=== PATIENT | female | born 1965 | race American Indian/Alaskan Native ===

== ENCOUNTER 2018-04-14 13:43 | Day surgery (SDC) | payer BC ==
[2018-04-14] MEDS ORDERED: VANCOMYCIN/NS 1 GM/250 ML 1 GM/250 ML BAG IV NR (14:12)
[2018-04-14] MEDS ORDERED: LACTATED RINGERS 1,000 ML IV SCH (14:16)
--- NOTE | 2018-04-14 14:21 | Anesthesia Consultation ---
Anesthesia Consult and Med Hx Date of service: 04/14/18 - Airway Anesthetic Teeth Evaluation: Dentures, Partials (lower partial) ROM Head & Neck: Adequate Mental/Hyoid Distance: Adequate Mallampati Class: Class I Intubation Access Assessment: Good - Pulmonary Exam CTA: Yes - Cardiac Exam Cardiac Exam: RRR - Pre-Operative Health Status ASA Pre-Surgery Classification: ASA1 Proposed Anesthetic Plan: General - Pre-Anesthesia Comment Pre-Anesthesia Comments: Patient tolerates >6 METs. No chest pain or SOB. No recent cold or flu. No N/V. No h/o motion sickness. Last surgery: patient said to have choked and coughed afterward. Unsure the reason. - Pulmonary Hx Smoking: No Hx Sleep Apnea: No (KASSIDY PRE SCREEN LOW RISK.) - Cardiovascular System Hx Hypertension: No - Central Nervous System Hx Seizures: No CVA: No - Gastrointestinal Hx Ulcer: No Hx Gastroesophageal Reflux Disease: No - Endocrine Hx Renal Disease: No - Other Systems Hx Alcohol Use: No Hx Substance Use: No Hx Cancer: No
[2018-04-14] MEDS ORDERED: DEMEROL IV PRN (14:22)
[2018-04-14] MEDS ORDERED: ZOFRAN IV PRN (14:22)
[2018-04-14] MEDS ORDERED: PERCOCET 5/325 PO PRN (14:22)
[2018-04-14] MEDS ORDERED: NARCAN 0.4 MG/1 ML IV PRN (14:22)
--- NOTE | 2018-04-14 14:22 | Anesthesia Day of Surgery ---
Anesthesia Day of Surgery - Day of Surgery Patient Examined: Yes Patient H&P Reviewed: Yes Patient is NPO: Yes
[2018-04-14] MEDS: VERSED IV NR ×2 (14:48→17:56)
[2018-04-14 14:51] LABS: Basophils # (Auto) 0.1 K/mm3 (0.0-0.1); Basophils % (Auto) 1.1 % (0.0-1.8); Eosinophils # (Auto) 0.3 K/mm3 (0.0-0.4); Eosinophils % (Auto) 5.1 % (0.0-4.3); Hematocrit 41.1 % (30.3-42.9); Hemoglobin 13.4 gm/dl (10.1-14.3); Lymphocytes # (Auto) 1.8 K/mm3 (1.2-5.4); Lymphocytes % (Auto) 35.4 % (13.4-35.0); Mean Corpuscular HGB Conc 33 % (30-34); Mean Corpuscular Hemoglobin 30 pg (28-32); Mean Corpuscular Volume 93 fl (79-97); Monocytes # (Auto) 0.4 K/mm3 (0.0-0.8); Monocytes % (Auto) 7.7 % (0.0-7.3); Platelet Count 180 K/mm3 (140-440); Red Blood Count 4.45 M/mm3 (3.65-5.03); Red Cell Distribution Width 13.6 % (13.2-15.2)
[2018-04-14] MEDS ORDERED: NACL ONE (17:53)
[2018-04-14] MEDS ORDERED: DIPRIVAN 10 MG/ML IV ONE (17:53)
[2018-04-14] MEDS ORDERED: BACITRACIN ONE (17:53)
[2018-04-14] MEDS ORDERED: DILAUDID ONE (17:54)
[2018-04-14] MEDS ORDERED: NACL 0.9% IR ONE (18:03)
[2018-04-14] MEDS ORDERED: NACL IRRIGATION ONE (18:03)
[2018-04-14] MEDS ORDERED: BACITRACIN IR ONE (18:03)
[2018-04-14] MEDS ORDERED: TORADOL ONE (18:18)
[2018-04-14] MEDS ORDERED: XYLOCAINE MPF 2% ONE (18:18)
[2018-04-14] MEDS ORDERED: DECADRON ONE (18:18)
[2018-04-14] MEDS ORDERED: ZOFRAN ONE (18:18)
[2018-04-14] MEDS ORDERED: SUBLIMAZE ONE ×2 (18:31→19:38)
--- NOTE | 2018-04-14 18:54 | Post Anesthesia Evaluation ---
- Post Anesthesia Evaluation Patient Participated: Yes Airway Patent: Yes Stable Respiratory Function: Yes Nausea/Vomiting: No Temp > 96.8F: Yes Pain Manageable: Yes Adequeate Hydration: Yes Anesthesia Complications: No Block Receding Appropriately: Not Applicable Patient on Ventilator: No
[2018-04-14] MEDS: DILAUDID IV PRN ×2 (21:17→21:35)
--- NOTE | 2018-04-14 21:54 | Operative Report ---
SERVICE: Plastic Surgery PREOPERATIVE DIAGNOSES: 1. Bilateral capsular contracture, breast implants. 2. Bilateral acquired breast deformity. 3. Right axillary mass. 4. Status post bilateral mastectomies with silicone gel breast implant reconstruction. POSTOPERATIVE DIAGNOSES: 1. Bilateral capsular contracture, breast implants. 2. Bilateral acquired breast deformity. 3. Right axillary mass. 4. Status post bilateral mastectomies with silicone gel breast implant reconstruction. PROCEDURE: 1. Bilateral capsulectomies. 2. Removal of bilateral breast implants. 3. Placement of bilateral breast implants. 4. Excision of right axillary mass greater than 4 cm. 5. Complex closure of right axilla, 8 cm. SURGEON: Christopher Loredo MD HOSE MENDER: Francisco J DESCRIPTION OF PROCEDURE: The patient was brought to the operating room and placed on the table in supine position. Following administration of general anesthesia, bilateral breasts and right axilla were prepped with Betadine solution, draped in usual sterile manner. A #10 blade scalpel was used to incise over the right axillary mass, which was circumferentially dissected and removed using electrocautery followed by placement of a 7 mm STEPHANY drain and closed in layers using interrupted and running subcuticular 2-0 Monocryl sutures after redundant overlying attenuated skin was resected. Attention was then directed to the breasts. The previous right inframammary fold surgical incision was incised, deepened through the subcutaneous fat and breast tissue down to the capsule of the breast implant. A 400 mL silicone gel implant was removed. Capsulectomy and capsulotomy was performed for placement of a 650 mL high profile smooth [employer] silicone gel implant. Similarly, a new left inframammary fold surgical incision was made, deepened through subcutaneous fat and breast tissue until reaching the capsule of the implant, which was incised with removal of the implant, capsulectomy and capsulotomy were performed to once again permit introduction of 650 mL silicone gel implant. Wound closure for bilateral breasts was performed in layers using interrupted 2-0 Monocryl sutures followed by running subcuticular 2-0 Monocryl sutures, Mastisol, Steri-Strips and sterile dressing. The patient tolerated the procedure well. There were no complications. JOB# [id number] FTW/NTS
[2018-04-14 22:50] VITALS: BP 141/66
== END 2018-04-14 22:55 | disposition home or self-care (01) ==
LOC: OR 13:43
PROVIDERS: ATTEND Plastic Surgery
DX: N60.11 Diffuse cystic mastopathy of right breast (principal); N64.89 Other specified disorders of breast; Z88.0 Allergy status to penicillin; Z90.710 Acquired absence of both cervix and uterus; Z98.890 Other specified postprocedural states; Z90.10 Acquired absence of unspecified breast and nipple
CPT/HCPCS: 19340; 19371; 36415; 85025; 88302; 88305; 88307; C1789; J1100; J1170; J1885; J2250; J2405; J2704; J3010; J3370; J7120; 88300